=== PATIENT | female | born 1960 | race Caucasian/White ===

== ENCOUNTER 2024-09-25 08:12 | Emergency (ER) | payer OTHER, SELFPAY ==
--- NOTE | ~2024-09-25 | CT_ITS ---
EXAMINATION: CTA BRAIN/CAROTID DATE: 09/25/2024 11:14 INDICATION: Headache and right-sided neck pain. TECHNIQUE: Computed tomographic angiography (CTA) of the head and neck was performed with 100 mL Omni paque-350 intravenous contrast. Multiplanar reconstructions and maximum intensity projection 3D-recon structions of the carotid arteries and of the intracranial arteries were created by the technologist on a separate workstation. Precontrast CT of the head was also obtained. Automated exposure control and iterative reconstruction technique were employed.The dose-length product was 1623.96 mGy-cm. COMPARISON: None. FINDINGS: Carotid arteries: Visualized aortic arch is normal in caliber with minimal atherosclerotic plaque and no dissection. Ri ght vertebral artery is mildly dominant. No evident stenosis along the extracranial vertebral arterie s. There is no evident atherosclerotic plaque with 0% stenosis of the right and left carotid bulbs re lative to normal distal artery lumen diameter (NASCET criteria). Moderate biapical pleural-parenchyma l scarring. There is wall thickening of the visualized proximal esophagus. Likely benign 5 mm right t hyroid nodule. Cervical spondylosis with moderate disc height loss and severe uncovertebral osteoarth ritis at C5-C6. Otherwise mild cervical spondylosis. Head: No acute intracranial hemorrhage, acute infarction or abnormal extra axial fluid collection. Ventricl es are normal and symmetric. No mass/mass effect. No abnormally enhancing brain lesions on the postco ntrast imaging. The orbits and mastoid air cells are normal. Large mucous retention cyst in the right maxillary sinus. Intracranial arteries Right vertebral artery is dominant. Small amount of nonhemodynamically significant atherosclerotic pl aque along the left carotid siphon. There is no hemodynamically significant stenosis in the vertebral , basilar and internal carotid arteries. Vertebral arteries are codominant. There are no aneurysms id entified. Bilateral A1 and P1 segments are patent. The left P1 segment is diminutive with majority of flow to the left posterior cerebral artery arising from a patent left posterior commuting artery. Th ere are also patent right posterior communicating and anterior to indicating arteries. Cerebral arter ial arborization appears symmetric. IMPRESSION: 1. No evident atherosclerotic plaque with 0% stenosis of the-left carotid bulbs relative to normal di stal artery lumen diameter (NASCET criteria). 2. Unremarkable cerebral CT angiogram with no hemodynamically significant stenosis or aneurysm. 3. Wall thickening visualized proximal esophagus suspicious for esophagitis. Reviewed, dictated and finalized at location A. RTISING COLUMNIST IMPRESSION: 1. No evident atherosclerotic plaque with 0% stenosis of the-left carotid bulbs relative to normal distal artery lumen diameter (NASCET criteria). 2. Unremarkable cerebral CT angiogram with no hemodynamically significant steno sis or aneurysm. 3. Wall thickening visualized proximal esophagus suspicious for esophagitis.
--- NOTE | ~2024-09-25 | XR_ITS ---
EXAMINATION: XR shoulder RT min 2V DATE: 09/25/2024 09:14 INDICATION: Right shoulder pain TECHNIQUE: AP internally and externally rotated, AP oblique externally rotated and transscapular Y vi ews of the right shoulder were obtained. COMPARISON: None FINDINGS: Normal alignment. No fracture. Glenohumeral joint is normal. Mild acromioclavicular osteoarthritis. Visualized portions of the lungs are clear. Soft tissues are unremarkable. IMPRESSION: Mild right acromioclavicular osteoarthritis. Reviewed, dictated and finalized at location A. ANESTHESIA ANALYST
--- NOTE | ~2024-09-25 | US_ITS ---
EXAMINATION: US venous doppler UE RT DATE: 09/25/2024 09:41 INDICATION: Right arm pain TECHNIQUE: Grayscale images without and with compression and Doppler images of the right upper extrem ity veins were obtained. COMPARISON: None. FINDINGS: The right internal jugular vein, subclavian vein, axillary vein, brachial vein, basilic vein, cephali c vein, radial vein, and ulnar vein are patent. IMPRESSION: 1. Patent right upper extremity veins. No evidence of venous thrombosis. Reviewed, dictated and finalized at location A. PING SUPPORT CLERK
[2024-09-25 08:19] VITALS: BP 136/80; PULSE 100; RESP 16; TEMP 36.4; O2SAT 100
--- NOTE | 2024-09-25 08:36 | PC.NURSE ---
Patient states she is having a warm sensation in her right arm traveling up to her head.
[2024-09-25 08:37] VITALS: BP 133/81; PULSE 86; RESP 16; O2SAT 97
--- NOTE | 2024-09-25 09:50 | ED.GENADULT ---
HPI - General Adult General Chief complaint: Extremity Problem,Nontraumatic Stated complaint: pop in RUE, pain travelled to head Time Seen by Provider: 09/25/24 08:23 History of Present Illness HPI narrative: This 64-year-old female presenting with arm pain. Patient says she has been having soreness in her right tricep the last several days. Today before she went to nondenominational she felt the pain moved from her tricep up into her shoulder and into her neck and into her head. She is concerned that she may have a blood clot. She has no other symptoms. The pain is worse with movement. She has not taken anything for pain control and is refusing any pain medication. Related Data Allergies Allergy/AdvReac Type Severity Reaction Status Date / Time Sulfa (Sulfonamide Allergy Unknown Rash Verified 09/25/24 08:14 Antibiotics) Exam Narrative: APPEARANCE: No apparent distress. Head: atraumatic. EYES: EOMI, NOSE: Atraumatic NECK: Trachea midline RESPIRATORY: No increased rate of breathing CARDIOVASCULAR: RRR, ABDOMINAL: Non-distended MUSCULOSKELETAl: Focal exam of the right upper extremity revealed no overlying skin changes. Some tenderness to palpation of the triceps. Pain active and passive abduction past 90?. All compartments are soft in the arm is neurovascularly intact. NEURO: Alert.Cranial nerves 2-12 grossly intact. Sensation light touch, motor function cerebellar function intact for 4 extremities. Gait exam was normal. SKIN:: Warm, dry. Normal color PSYCHIATRIC: Normal affect Course Vital Signs Vital signs: Vital Signs Temperature 97.6 F 09/25/24 08:19 Pulse Rate 100 09/25/24 08:19 Respiratory Rate 16 09/25/24 08:19 Blood Pressure 136/80 09/25/24 08:19 Pulse Oximetry 100 09/25/24 08:19 Temperature 97.6 F 09/25/24 08:19 Pulse Rate 86 09/25/24 08:37 Respiratory Rate 16 09/25/24 08:37 Blood Pressure 133/81 09/25/24 08:37 Pulse Oximetry 97 09/25/24 08:37 Medical Decision Making MDM Narrative Medical decision making narrative: -Course: 64-year-old female presenting with right shoulder/tricep pain. physical exam unremarkable. vital signs stable. Normal neurologic exam. x-ray showed arthritis at the AC joint. Venous ultrasound negative. Results were explained patient. Patient was still very concerned this sensation of something moving upper neck and into her head. A CTA was ordered which did not reveal any sort of arterial insult or intracranial hemorrhage. Results were explained to the patient. She has been encouraged follow-up your primary care physician and return to the ED if she develops any new or worsening symptoms. -DDX includes but is not limited to: muscle strain arthritis DVT peripheral neuropathy Vital Signs Vital Signs: Vital Signs Temperature 97.6 F 09/25/24 08:19 Pulse Rate 100 09/25/24 08:19 Respiratory Rate 16 09/25/24 08:19 Blood Pressure 136/80 09/25/24 08:19 Pulse Oximetry 100 09/25/24 08:19 Temperature 97.6 F 09/25/24 08:19 Pulse Rate 86 09/25/24 08:37 Respiratory Rate 16 09/25/24 08:37 Blood Pressure 133/81 09/25/24 08:37 Pulse Oximetry 97 09/25/24 08:37 Discharge Plan Discharge Clinical Impression: Arm pain Patient Disposition: Home, Self-Care Condition: Stable Instructions: Antibiotic Form, Arm Pain (ED) Additional Instructions: You were seen in the emergency department for arm and neck pain. X-rays of your shoulder, ultrasound of your upper extremity, and CTA of your head and neck and neck. Please follow-up with your primary care physician for further management. You can use Motrin and Tylenol for pain. If you develop any new or worsening symptoms you can return to the ED for re-evaluation. Patient Language: Tamazight Follow-up/Referrals: Mathew,NILAM Hale [Primary Care Provider] -
[2024-09-25 10:15] LABS: Basophils Absolute Auto 0.1 K/mm3 (0.0-0.1); Basophils Percent Auto 0.8 % (0.2-1.2); Eosinophils Absolute Auto 0.2 K/mm3 (0-0.3); Hematocrit 39.3 % (37.0-47.0); Hemoglobin 12.9 g/dL (12.0-15.0); Immature Granulocyte Absolute 0.01 K/mm3 (0.00-0.031); Immature Granulocyte Percent A 0.1 % (0-0.5); Mean Corpuscular HGB Conc 32.8 g/dl (32-36); Mean Corpuscular Hemoglobin 30.8 pg (26-34); Mean Corpuscular Volume 93.8 fl (80-100); Mean Platelet Volume 9.6 fl (7.4-10.4); Monocytes Absolute Auto 0.6 K/mm3 (0.1-0.6); Monocytes Percent Auto 7.3 % (2.6-8.5); Neutrophils Absolute Auto 5.2 K/mm3 (1.3-6.7); Neutrophils Percent Auto 66.8 % (45.5-73.1); Platelet Count Result 328 k/mm3 (150-375); Red Blood Count 4.19 M/mm3 (4.2-5.4); Red Cell Distribution Width 12.9 % (11.5-14.5); White Blood Count 7.8 K/mm3 (4.5-10.0)
[2024-09-25 10:36] LABS: Alanine Aminotransferase 12 U/L (6-35); Alkaline Phosphatase 67 U/L (38-126); Anion Gap 0 mmol/L (4-12); Aspartate Amino Transferase 19 U/L (14-36); Bilirubin,Total 0.3 mg/dL (0.2-1.3); Blood Urea Nitrogen 26 mg/dL (7-17); Calcium 8.9 mg/dL (8.4-10.2); Carbon Dioxide 29 mmol/L (22-30); Chloride 109 mmol/L (98-107); Estimated CRCL calculation 77 ml/min; Estimated Glomerular Filt Rate > 60; Glucose 104 mg/dL (65-110); Potassium 4.6 mmol/L (3.4-5.0); Sodium 138 mmol/L (137-145)
[2024-09-25 11:11] VITALS: PULSE 75; RESP 15
[2024-09-25 11:15] VITALS: PULSE 83; RESP 20
[2024-09-25 12:00] VITALS: BP 128/72; PULSE 75; RESP 17; O2SAT 97
[2024-09-25 12:35] VITALS: BP 126/78; PULSE 78; RESP 16; TEMP 36.6; O2SAT 100
--- OUTSIDE RECORDS SUMMARY | 2024-10-02 03:52 | XMS_ITS | Clinical Summary ---
Author Organization [facility] Address [address] [place] [address]. [place], [place] [id number] [place] [id number] Care Team Providers Care Hr Coordinator Name Role Phone Unavailable Primary Care Provider Unavailabl e Social History Tobacco Use Types Packs/Day Years Used Date Smoking Tobacco: Never Assessed Comments Unknown Sex and Gender Information Value Date Recorded Sex Assigned at Not on file Legal Sex Female 9:25 AM RECRUITMENT COORDINATOR Gender Identity Not on file Sexual Orientation Not on file Plan of Treatment Health Maintenance Due Date Last Done Comments Colorectal Cancer Screening Colonoscopy (10 Years) 1958 Hepatitis C 1976 DTaP, Tdap and Td Vaccines ( 1 - Tdap) 1977 Mammogram Screening 1998 Zoster Vaccines (1 of 2) 2008 Dexa Scan (General) 2023 Pneumococcal Vaccine: 65+ Ye ars (1 of 1 - PCV) 2023 COVID-19 Vaccine ( - 2023-2 5 season) 2024 Influenza Adult (#1) 2024 RSV Immunization or 60+ Years (1 - 1-dose 75+ series) 2033 Meningococcal Vaccine Aged Out No nick turner eligible based on patient's age to complete this topic RSV Immunizations Under 20 Months Aged Out No longer eligible based on patient's age to complete this topic Insurance [facility]
--- OUTSIDE RECORDS SUMMARY | 2024-10-02 03:52 | XMS_ITS | Encounter Summary ---
Author Organization [facility] Address [address] [place] [address]. [place] [address] [place] [address] Care Team Providers Care Senior Account Executive Name Role Phone Unavailable Primary Care Provider Unavailabl e Reason for Referral * (Routine) - Closed Specialty Diagnoses / Procedures Referred By Contac t Referred To Contact Diagnoses Pelvic and perineal pain Procedures VAGINITIS SCREEN Cary Wesley MD [address] [place] [address] Phone: tel: fax: Referral ID Status Reason Start Date Expiration Date Visits Re quested Visits Authorized [id number] Closed 11/03/2022 11/03/2023 1 1 ING MACHINE OPERATOR Encounter Details Date Type Department Care Team (Latest Contact Info) Description 11/03/2022 3:26 PM PACKING MACHINE OPERATOR - 11/03/2022 11:59 PM PACKING MACHINE OPERATOR Hospital Encounter [facility] [address] [place] [address] Cary Wesley MD [address] [place] [address] Discharge Disposition: Home or Self Care (Routine Discharge) Social History Tobacco Use Types Packs/Day Years Used Date Smoking Tobacco: Never Assessed Comments Unknown Sex and Gender Information Value Date Recorded Sex Assigned at Not on file Legal Sex Female 9:25 AM PACKING MACHINE OPERATOR Gender Identity Not on file Sexual Orientation Not on file documented as of this encounter Plan of Treatment Not on file documented as of this encounter Procedures Procedure Name Priority Date/Time Associated Diagnosis Comments HUMAN PAPILLOMAVIRUS, HIGH-RISK TYPES Routine 11/03/2022 12:00 PM PACKING MACHINE OPERATOR VAGINITIS SCREEN Routine 11/03/2022 8:20 AM PACKING MACHINE OPERATOR Pelvic and perineal pain CULTURE URINE (OUTPATIENTS) Routine 11/03/2022 8:20 AM PACKING MACHINE OPERATOR HC URINALYSIS AUTO W/MICRO Routine 11/03/2022 8:20 AM PACKING MACHINE OPERATOR CYTOPATH CERV/VAG THIN LAYER Routine 11/03/2022 7:37 AM PACKING MACHINE OPERATOR documented in this encounter Results * HUMAN PAPILLOMAVIRUS, HIGH-RISK TYPES (11/03/2022 12:00 PM PACKING MACHINE OPERATOR) SPECIMEN CERVICAL/END OCERVICAL 11/05/2022 8:09 AM PACKING MACHINE OPERATOR [facility] HPV DNA HIGH RISK NEGATIVE NEGATIVE 11/05/2022 3:42 PM PACKING MACHINE OPERATOR [facility] Comment:SEE CYTOLOGY REPORT 11/03/2022 12:0 0 PM PACKING MACHINE OPERATOR [facility] Jerome Wesley MD PATHOLOGY/CYTOLOGY ORDERAB LES Final Result [facility] [address] [place] [address], * CULTURE, URINE (OUTPATIENTS) (11/03/2022 8:20 AM PACKING MACHINE OPERATOR) SPEC DESCRIPTION URINE, UNSPECIFIED 11/03/2022 3:28 PM PACKING MACHINE OPERATOR [facility] SPECIAL REQUESTS NO SPECIAL REQUEST 11/03/2022 3:28 PM PACKING MACHINE OPERATOR [facility] CULTURE RESULT NO GROWTH (< OR = 1,000 CFU/ML) 11/05/2022 8:29 AM PACKING MACHINE OPERATOR [facility] URINE SPECIMEN / Unknown 11/03/2022 8:20 AM PACKING MACHINE OPERATOR 11/03/2022 4:23 PM PACKING MACHINE OPERATOR [facility] Jerome Wesley MD MICROBIOLOGY - GENERAL ORD ERABLES Final Result [facility] [address] [place] [address], [id number] * URINALYSIS (11/03/2022 8:20 AM PACKING MACHINE OPERATOR) COLOR (U) LIGHT YELLOW 11/03/2022 4:10 PM PACKING MACHINE OPERATOR [facility] TRANSPARENCY CLEAR 11/03/2022 4:10 PM PACKING MACHINE OPERATOR [facility] SPECIFIC GRAVITY (U) 1.017 1.002 - 1.035 11/03/2022 4:10 PM PACKING MACHINE OPERATOR [facility] U PH 6.5 5 - 8 11/03/2022 4:10 PM PACKING MACHINE OPERATOR [facility] PROTEIN (U) NEGATIVE NEGATIVE 11/03/2022 4:10 PM PACKING MACHINE OPERATOR [facility] URINE GLUCOSE NEGATIVE NEGATIVE MG/DL 11/03/2022 4:10 PM PACKING MACHINE OPERATOR [facility] KETONES MG/DL (U) NEGATIVE NEGATIVE 11/03/2022 4:10 PM PACKING MACHINE OPERATOR [facility] BILIRUBIN (U) NEGATIVE NEGATIVE 11/03/2022 4:10 PM PACKING MACHINE OPERATOR [facility] BLOOD (U) NEGATIVE NEGATIVE 11/03/2022 4:10 PM PACKING MACHINE OPERATOR [facility] NITRITES NEGATIVE NEGATIVE 11/03/2022 4:10 PM PACKING MACHINE OPERATOR [facility] UROBILINOGEN NORMAL 0 - 1 EU/DL 11/03/2022 4:10 PM PACKING MACHINE OPERATOR [facility] LEUKOCYTES (U) NEGATIVE NEGATIVE 11/03/2022 4:10 PM PACKING MACHINE OPERATOR [facility] RBC/HPF 2 0 - 3 /HPF 11/03/2022 4:10 PM PACKING MACHINE OPERATOR [facility] WBC/HPF <1 0 - 6 /HPF 11/03/2022 4:10 PM PACKING MACHINE OPERATOR [facility] BACTERIA (U) NONE /HPF 11/03/2022 4:10 PM PACKING MACHINE OPERATOR [facility] SQUAMOUS EPITHELIALS <1 11/03/2022 4:10 PM PACKING MACHINE OPERATOR [facility] URINE SPECIMEN / Unknown 11/03/2022 8:20 AM PACKING MACHINE OPERATOR Cary Wesley MD URINE ORDERABLES Final Res ult Performing Organization Address [facility] Co de Phone Number [facility] [address] [place] [address], [id number] * VAGINITIS SCREEN (11/03/2022 8:20 AM PACKING MACHINE OPERATOR) SPEC DESCRIPTION VAGINAL SPECIMEN 11/03/2022 3:27 PM PACKING MACHINE OPERATOR [facility] SPECIAL REQUESTS NO SPECIAL REQUEST 11/03/2022 3:27 PM PACKING MACHINE OPERATOR [facility] RESULT TRICHOMONAS VAGINALIS NEGATIVE 11/03/2022 5:21 PM PACKING MACHINE OPERATOR [facility] RESULT GARDNERELLA VAGINALIS NEGATIVE 11/03/2022 5:21 PM PACKING MACHINE OPERATOR [facility] RESULT JUAN ANTONIO SPECIES NEGATIVE 11/03/2022 5:21 PM PACKING MACHINE OPERATOR [facility] VAGINAL STRUCTURE / Unknown 11/03/2022 8:20 AM PACKING MACHINE OPERATOR 11/03/2022 4:23 PM PACKING MACHINE OPERATOR Cary Wesley MD MICROBIOLOGY - GENERAL ORD ERABLES Final Result Performing Organization Address [facility] de Phone Number [facility] [address] [place] [address], [place] [phone] * Cytopath Cerv/Vag Thin Layer (11/03/2022 7:37 AM PACKING MACHINE OPERATOR) THIN PREP PAP ? [facility] ?[address] ?[place] [address] ? Department of Pathology ? Pathology Report ? CERVICAL/VAGINAL PAP SMEAR REPORT Name: OLEKSANDR, MERE ? Age: 6 1960 (Age: 62) ?Location: [facility] Sex: F ?Collected Date: 11/03/2022 Hospital #: [id number] ?Date Received: 11/05/2022 Date Reported: 11/07/2022 Provider: CARY WESLEY MD INTERPRETATION CERVICAL/ENDOCERVI ABDOULAYE: ? SATISFACTORY FOR EVALUATION. ENDOCERVICAL/TRANS FORMATION ZONE COMPONENT PRESENT. ? NEGATIVE FOR INTRAEPITHELIAL LESION OR MALIGNANCY. NEGATIVE FOR HIGH RISK HPV. The FDA approved Aptima HPV assay is an in vitro nucleic acid amplification test for the qualitative detection of E6/E7 viral messenger RNA (mRNA) from 14 high-risk types of human papillomavirus (HPV) in cervical specimens. ??The high-risk HPV types detected by the assay include: 16,18,31,33,35,39, 45,51,52,56,58,59, 66, and 68. Electronically Signed Out By MIRYAM Miller (ASCP) CLINICAL HISTORY Z12.4 PAP HISTORY-UNKNOWN BAD CLOTH CHECKER SURGICAL HISTORY-NONE ThinPrep Pap Test with screening HR HPV testing requested, with reflex HPV 16/18 genotyping on negative cytology, positive HR HPV Menstrual Status: Post-Menopausal SPECIMEN SUBMITTED CERVICAL/ENDOCERVI ABDOULAYE ?Specimen Received:1 Thin Prep Vial, Image Assisted Pap (SMD) ? Please note: The Pap smear is not a diagnostic test. ??It is a screening test. ??Negative results on combined screening (Pap test and HPV-DNA) have a high negative predictive value (99.1-100 percent) for cervical cancer. ??The pap test is not effective in detecting cervical adenocarcinoma. [facility] 11/03/2022 7:37 AM PACKING MACHINE OPERATOR 11/05/2022 7:37 AM PACKING MACHINE OPERATOR Comment:CERVICAL/ENDOCERVICA L [facility] Jerome Wesley MD PATHOLOGY/CYTOLOGY ORDERAB LES Final Result [facility] [address] [place] [address], documented in this encounter Visit Diagnoses Diagnosis Pelvic and perineal pain Unspecified symptom associated with female genital organs documented in this encounter
--- OUTSIDE RECORDS SUMMARY | 2024-10-02 03:52 | XMS_ITS | Encounter Summary ---
Author Organization [facility] Address [facility] [facility] [place] [address] [place] [address] Care Team Providers Care Printer Operator Name Role Phone Unavailable Primary Care Provider Unavailabl e Reason for Referral * (Routine) - Closed Specialty Diagnoses / Procedures Referred By Contac t Referred To Contact Diagnoses Pelvic and perineal pain Procedures VAGINITIS SCREEN Daryl Tate MD [address] [place] [address] Phone: tel: fax: Referral ID Status Reason Start Date Expiration Date Visits Re quested Visits Authorized [id number] Closed 11/03/2022 11/03/2023 1 1 TRIC METER SETTER Encounter Details Date Type Department Care Team (Late st Contact Info) Description 11/03/2022 Orders Only [facility] [address] [place] [address] Daryl Tate MD [address] [place] [address] Social History Tobacco Use Types Packs/Day Years Used Date Smoking Tobacco: Never Assessed Comments Unknown Sex and Gender Information Value Date Recorded Sex Assigned at Not on file Legal Sex Female 9:25 AM ELECTRIC METER SETTER Gender Identity Not on file Sexual Orientation Not on file documented as of this encounter Plan of Treatment Not on file documented as of this encounter Results * VAGINITIS SCREEN (11/03/2022 8:20 AM ELECTRIC METER SETTER) SPEC DESCRIPTION VAGINAL SPECIMEN 11/03/2022 3:27 PM ELECTRIC METER SETTER [facility] SPECIAL REQUESTS NO SPECIAL REQUEST 11/03/2022 3:27 PM ELECTRIC METER SETTER [facility] RESULT TRICHOMONAS VAGINALIS NEGATIVE 11/03/2022 5:21 PM ELECTRIC METER SETTER [facility] RESULT GARDNERELLA VAGINALIS NEGATIVE 11/03/2022 5:21 PM ELECTRIC METER SETTER [facility] RESULT JUAN ANTONIO SPECIES NEGATIVE 11/03/2022 5:21 PM ELECTRIC METER SETTER [facility] VAGINAL STRUCTURE / Unknown 11/03/2022 8:20 AM ELECTRIC METER SETTER 11/03/2022 4:23 PM ELECTRIC METER SETTER [facility] Jerome Tate MD MICROBIOLOGY - GENERAL ORD ERABLES Final Result [facility] [address] [place] [address], [id number] documented in this encounter Visit Diagnoses Diagnosis Pelvic and perineal pain Unspecified symptom associated with female genital organs documented in this encounter
--- OUTSIDE RECORDS SUMMARY | 2024-10-02 04:41 | XMS_ITS | Clinical Summary ---
Author Organization [facility] Address [address] [place] [address]. [place], [place] [address] [place] [address] Care Team Providers Care Chemical Lab Supervisor Name Role Phone Unavailable Primary Care Provider Unavailabl e Social History Tobacco Use Types Packs/Day Years Used Date Smoking Tobacco: Never Assessed Comments Unknown Sex and Gender Information Value Date Recorded Sex Assigned at Not on file Legal Sex Female 9:25 AM STRUCTURES TECHNICIAN Gender Identity Not on file Sexual Orientation [...] patient's age to complete this topic Insurance [facility]
--- OUTSIDE RECORDS SUMMARY | 2024-10-02 04:41 | XMS_ITS | Encounter Summary ---
Author Organization [facility] Address [address] [place] [address]. [place] [address] [place] [address] Care Team Providers Care Bundle Collector Name Role Phone Unavailable Primary Care Provider Unavailabl e Reason for Referral * (Routine) - Closed Specialty Diagnoses / Procedures Referred By Contac t Referred To Contact Diagnoses Pelvic and perineal pain Procedures VAGINITIS SCREEN Cary Wesley MD [address] [place] [address] Phone: tel: fax: Referral ID Status Reason Start Date Expiration Date Visits Re quested Visits Authorized [id number] Closed 11/03/2022 11/03/2023 1 1 TRIC STOVE MECHANIC Encounter Details Date Type Department Care Team (Latest Contact Info) Description 11/03/2022 3:26 PM ELECTRIC STOVE MECHANIC - 11/03/2022 11:59 PM ELECTRIC STOVE MECHANIC Hospital Encounter [facility] [address] [place] [address] Cary Wesley MD [address] [place] [address] Discharge Disposition: Home or Self Care (Routine Discharge) Social History Tobacco Use Types Packs/Day Years Used Date Smoking Tobacco: Never Assessed Comments Unknown Sex and Gender Information Value Date Recorded Sex Assigned at Not on file Legal Sex Female 9:25 AM ELECTRIC STOVE MECHANIC Gender Identity Not on file Sexual Orientation Not on file documented as of this encounter Plan of Treatment Not on file documented as of this encounter Procedures Procedure Name Priority Date/Time Associated Diagnosis Comments HUMAN PAPILLOMAVIRUS, HIGH-RISK TYPES Routine 11/03/2022 12:00 PM ELECTRIC STOVE MECHANIC VAGINITIS SCREEN Routine 11/03/2022 8:20 AM ELECTRIC STOVE MECHANIC Pelvic and perineal pain CULTURE URINE (OUTPATIENTS) Routine 11/03/2022 8:20 AM ELECTRIC STOVE MECHANIC HC URINALYSIS AUTO W/MICRO Routine 11/03/2022 8:20 AM ELECTRIC STOVE MECHANIC CYTOPATH CERV/VAG THIN LAYER Routine 11/03/2022 7:37 AM ELECTRIC STOVE MECHANIC documented in this encounter Results * HUMAN PAPILLOMAVIRUS, HIGH-RISK TYPES (11/03/2022 12:00 PM ELECTRIC STOVE MECHANIC) SPECIMEN CERVICAL/END OCERVICAL 11/05/2022 8:09 AM ELECTRIC STOVE MECHANIC [facility] HPV DNA HIGH RISK NEGATIVE NEGATIVE 11/05/2022 3:42 PM ELECTRIC STOVE MECHANIC [facility] Comment:SEE CYTOLOGY REPORT 11/03/2022 12:0 0 PM ELECTRIC STOVE MECHANIC [facility] Jerome Wesley MD PATHOLOGY/CYTOLOGY ORDERAB LES Final Result [facility] [address] [place] [address], * CULTURE, URINE (OUTPATIENTS) (11/03/2022 8:20 AM ELECTRIC STOVE MECHANIC) SPEC DESCRIPTION URINE, UNSPECIFIED 11/03/2022 3:28 PM ELECTRIC STOVE MECHANIC [facility] SPECIAL REQUESTS NO SPECIAL REQUEST 11/03/2022 3:28 PM ELECTRIC STOVE MECHANIC [facility] CULTURE RESULT NO GROWTH (< OR = 1,000 CFU/ML) 11/05/2022 8:29 AM ELECTRIC STOVE MECHANIC [facility] URINE SPECIMEN / Unknown 11/03/2022 8:20 AM ELECTRIC STOVE MECHANIC 11/03/2022 4:23 PM ELECTRIC STOVE MECHANIC [facility] Wesley MD MICROBIOLOGY - GENERAL ORD ERABLES Final Result [facility] [address] [place] [address], [id number] * URINALYSIS (11/03/2022 8:20 AM ELECTRIC STOVE MECHANIC) COLOR (U) LIGHT YELLOW 11/03/2022 4:10 PM ELECTRIC STOVE MECHANIC [facility] TRANSPARENCY CLEAR 11/03/2022 4:10 PM ELECTRIC STOVE MECHANIC [facility] SPECIFIC GRAVITY (U) 1.017 1.002 - 1.035 11/03/2022 4:10 PM ELECTRIC STOVE MECHANIC [facility] U PH 6.5 5 - 8 11/03/2022 4:10 PM ELECTRIC STOVE MECHANIC [facility] PROTEIN (U) NEGATIVE NEGATIVE 11/03/2022 4:10 PM ELECTRIC STOVE MECHANIC [facility] URINE GLUCOSE NEGATIVE NEGATIVE MG/DL 11/03/2022 4:10 PM ELECTRIC STOVE MECHANIC [facility] KETONES MG/DL (U) NEGATIVE NEGATIVE 11/03/2022 4:10 PM ELECTRIC STOVE MECHANIC [facility] BILIRUBIN (U) NEGATIVE NEGATIVE 11/03/2022 4:10 PM ELECTRIC STOVE MECHANIC [facility] BLOOD (U) NEGATIVE NEGATIVE 11/03/2022 4:10 PM ELECTRIC STOVE MECHANIC [facility] NITRITES NEGATIVE NEGATIVE 11/03/2022 4:10 PM ELECTRIC STOVE MECHANIC [facility] UROBILINOGEN NORMAL 0 - 1 EU/DL 11/03/2022 4:10 PM ELECTRIC STOVE MECHANIC [facility] LEUKOCYTES (U) NEGATIVE NEGATIVE 11/03/2022 4:10 PM ELECTRIC STOVE MECHANIC [facility] RBC/HPF 2 0 - 3 /HPF 11/03/2022 4:10 PM ELECTRIC STOVE MECHANIC [facility] WBC/HPF <1 0 - 6 /HPF 11/03/2022 4:10 PM ELECTRIC STOVE MECHANIC [facility] BACTERIA (U) NONE /HPF 11/03/2022 4:10 PM ELECTRIC STOVE MECHANIC [facility] SQUAMOUS EPITHELIALS <1 11/03/2022 4:10 PM ELECTRIC STOVE MECHANIC [facility] URINE SPECIMEN / Unknown 11/03/2022 8:20 AM ELECTRIC STOVE MECHANIC Cary Wesley MD URINE ORDERABLES Final Res ult Performing Organization Address [facility] Co de Phone Number [facility] [address] [place] [address], [phone] * VAGINITIS SCREEN (11/03/2022 8:20 AM ELECTRIC STOVE MECHANIC) SPEC DESCRIPTION VAGINAL SPECIMEN 11/03/2022 3:27 PM ELECTRIC STOVE MECHANIC [facility] SPECIAL REQUESTS NO SPECIAL REQUEST 11/03/2022 3:27 PM ELECTRIC STOVE MECHANIC [facility] RESULT TRICHOMONAS VAGINALIS NEGATIVE 11/03/2022 5:21 PM ELECTRIC STOVE MECHANIC [facility] RESULT GARDNERELLA VAGINALIS NEGATIVE 11/03/2022 5:21 PM ELECTRIC STOVE MECHANIC [facility] RESULT JUAN ANTONIO SPECIES NEGATIVE 11/03/2022 5:21 PM ELECTRIC STOVE MECHANIC [facility] VAGINAL STRUCTURE / Unknown 11/03/2022 8:20 AM ELECTRIC STOVE MECHANIC 11/03/2022 4:23 PM ELECTRIC STOVE MECHANIC Cary Wesley MD MICROBIOLOGY - GENERAL ORD ERABLES Final Result Performing Organization Address [facility] de Phone Number [facility] [address] [place] [address], [place] [phone] * Cytopath Cerv/Vag Thin Layer (11/03/2022 7:37 AM ELECTRIC STOVE MECHANIC) THIN PREP PAP ? [facility] ?[address] ?[place] [address] ? Department of Pathology ? Pathology Report ? CERVICAL/VAGINAL PAP SMEAR REPORT Name: OLEKSANDR, MERE ? Age: 6 1960 (Age: 62) ?Location: [facility] Sex: F ?Collected Date: 11/03/2022 Hospital #: [id number] ?Date Received: 11/05/2022 Date Reported: 11/07/2022 Provider: [...] Miller (ASCP) CLINICAL HISTORY Z12.4 PAP HISTORY-UNKNOWN STORE PRODUCT DEMONSTRATOR SURGICAL HISTORY-NONE ThinPrep Pap Test with screening [...] is not effective in detecting cervical adenocarcinoma. [facility] 11/03/2022 7:37 AM ELECTRIC STOVE MECHANIC 11/05/2022 7:37 AM ELECTRIC STOVE MECHANIC Comment:CERVICAL/ENDOCERVICA L [facility] Wesley MD PATHOLOGY/CYTOLOGY ORDERAB LES Final Result [facility] [address] [place] [address], documented in this encounter Visit Diagnoses Diagnosis Pelvic and perineal pain Unspecified symptom associated with female genital organs documented in this encounter
--- OUTSIDE RECORDS SUMMARY | 2024-10-02 04:41 | XMS_ITS | Encounter Summary ---
Author Organization [facility] Address [facility] [facility] [place] [address] [place] [address] Care Team Providers Care Account Associate Name Role Phone Unavailable Primary Care Provider Unavailabl e Reason for Referral * (Routine) - Closed Specialty Diagnoses / Procedures Referred By Contac t Referred To Contact Diagnoses Pelvic and perineal pain Procedures VAGINITIS SCREEN Daryl Tate MD [address] [place] [address] Phone: tel: fax: Referral ID Status Reason Start Date Expiration Date Visits Re quested Visits Authorized [id number] Closed 11/03/2022 11/03/2023 1 1 ONAL REHABILITATION DIRECTOR Encounter Details Date Type Department Care Team (Late st Contact Info) Description 11/03/2022 Orders Only [facility] [address] [place] [address] Daryl Tate MD [address] [place] [address] Social History Tobacco Use Types Packs/Day Years Used Date Smoking Tobacco: Never Assessed Comments Unknown Sex and Gender Information Value Date Recorded Sex Assigned at Not on file Legal Sex Female 9:25 AM REGIONAL REHABILITATION DIRECTOR Gender Identity Not on file Sexual Orientation Not on file documented as of this encounter Plan of Treatment Not on file documented as of this encounter Results * VAGINITIS SCREEN (11/03/2022 8:20 AM REGIONAL REHABILITATION DIRECTOR) SPEC DESCRIPTION VAGINAL SPECIMEN 11/03/2022 3:27 PM REGIONAL REHABILITATION DIRECTOR [facility] SPECIAL REQUESTS NO SPECIAL REQUEST 11/03/2022 3:27 PM REGIONAL REHABILITATION DIRECTOR [facility] RESULT TRICHOMONAS VAGINALIS NEGATIVE 11/03/2022 5:21 PM REGIONAL REHABILITATION DIRECTOR [facility] RESULT GARDNERELLA VAGINALIS NEGATIVE 11/03/2022 5:21 PM REGIONAL REHABILITATION DIRECTOR [facility] RESULT JUAN ANTONIO SPECIES NEGATIVE 11/03/2022 5:21 PM REGIONAL REHABILITATION DIRECTOR [facility] VAGINAL STRUCTURE / Unknown 11/03/2022 8:20 AM REGIONAL REHABILITATION DIRECTOR 11/03/2022 4:23 PM REGIONAL REHABILITATION DIRECTOR [facility] Jerome Tate MD MICROBIOLOGY - GENERAL ORD ERABLES Final Result [facility] [address] [place] [address], [id number] documented in this encounter Visit Diagnoses Diagnosis Pelvic and perineal pain Unspecified symptom associated with female genital organs documented in this encounter
== END 2024-09-25 12:36 | disposition home or self-care (01) ==
PROVIDERS: Emergency Provider Emergency Medicine; PCP Physician Assistant
DX: M79.621 Pain in right upper arm (principal)
CPT/HCPCS: 36415; 70496; 70498; 73030; 80053; 85025; 93971; 99284; Q9967